=== PATIENT | female | born 1975 | race Caucasian/White ===

== ENCOUNTER 2019-01-07 06:28 | Emergency (ER) | payer MEDICAID ==
[~2019-01-07] VITALS: Ht 144.8 cm; Wt 69.4 kg
[2019-01-07 06:35] VITALS: Ht 144.8 cm; Wt 69.4 kg
[2019-01-07 07:50] LABS: BASOPHIL % 0.6 % (0-2); PLATELET COUNT 170 x10^3mcL (130-400)
[2019-01-07 07:55] LABS: RED CELL DISTRIBUTION WIDTH 15.1 % (11.5-14.5)
[2019-01-07 10:33] VITALS: BP 121/62
== END 2019-01-07 10:53 | disposition home or self-care (01) ==
LOC: ED 06:28
PROVIDERS: Emergency Medicine
DX: O02.1 Missed abortion (principal); Z3A.10 10 weeks gestation of pregnancy
CPT/HCPCS: 36415